=== PATIENT | male | born 1950 | race Caucasian/White ===

== ENCOUNTER → 2024-05-10 08:46 | Outpatient (REF) | payer MEDICARE, SELFPAY ==
[2024-05-10 10:26] LABS: % Basophils 0.4 % (0-2); % Eosinophils 1.2 % (0-6); % Lymphocytes 22.9 % (20.5-51.1); % Monocytes 9.2 % (1.7-9.3); % Neutrophils 65.3 % (42.2-75.2); Absolute Eosinophils 0.1 10^3/uL (0-0.7); Absolute Immature Granulocytes 0.1 10^3/uL (0-0.05); Absolute Lymphocytes 1.6 10^3/uL (1.2-3.4); Absolute Monocytes 0.6 10^3/uL (0.1-0.6); Absolute Neutrophils 4.5 10^3/uL (1.4-6.5); Hematocrit 39.5 % (39.0-52.0); Hemoglobin 12.6 g/dL (13.0-18.0); Mean Corp Hgb Conc. 31.9 g/dL (33.0-37.0); Mean Corpuscular Hgb 26.2 pg (27.0-31.0); Mean Corpuscular Volume 82.1 fL (80.0-94.0); Nucleated Red Blood Cells % 0 % (-); Platelet Count 233 10^3/uL (130-400); Red Blood Cell Count 4.81 10^6/uL (4.70-6.10); Red Cell Dist. Width 15.2 % (11.5-14.5); White Blood Cell Count 6.9 10^3/uL (4.8-10.8)
[2024-05-10 10:56] LABS: Blood Urea Nitrogen 21 mg/dl (9-20); Calcium 9.1 mg/dl (8.4-10.2); Carbon Dioxide 28 mmol/L (22-30); Chloride 103 mmol/L (98-107); Glucose 88 mg/dl (70-99); Sodium 137 mmol/L (135-145); eGFR > 60.00
== END ==
LOC: RCS 08:46
PROVIDERS: ATTENDING PHYSICIAN Orthopaedic Surgery; FAMILY PHYSICIAN Family Medicine
DX: Z01.818 Encounter for other preprocedural examination (principal)
CPT/HCPCS: 36415; 80048; 85025; 93005

== ENCOUNTER 2024-05-19 14:58 | Emergency (ER) | payer MEDICARE, SELFPAY ==
[2024-05-19 15:07] VITALS: BP 137/80
--- NOTE | 2024-05-19 15:37 | ED.GENMED ---
History of Present Illness
General
Chief Complaint: Swelling
Source: patient
Exam Limitations: none
Time Seen by Provider: 05/19/24 15:36
History of Present Illness
History of Present Illness:
74-year-old male with 2 weeks of nontraumatic swelling and pain mostly of the right wrist and hand. However also bilateral feet. No fever chills no chest pain shortness of breath no weight change. Patient went to patient urgent care who was
concerned about his EKG and sent him for further evaluation.
Past History
Past History
ED Past Medical History: HTN
ED Past Surgical History: Orthopedic and Other (Hernia repair/wisdom teeth)
Review of Systems
Review of Systems
All Other Systems: Not applicable
Constitutional: Denies fever, weight gain, weight loss or chills
Respiratory: Denies trouble breathing
Cardiac: Denies chest pain or syncope
Phy Exam
Physical Exam
Physical Exam:
GENERAL: Alert and oriented in no apparent distress
EYE: Orbits normal.
NECK: Supple, no thyroid palpable
ENT: Pharynx without erythema
CARDIAC: Regular rate and rhythm without any obvious murmurs.
LUNGS: Clear breath sounds,normal
ABDOMEN: Soft, without focal tenderness or distention
NEUROLOGICAL: Alert and oriented , grossly non-focal
SKIN: Warm and dry, no rash or lesion, no discoloration, skin intact.
MUSCULOSKELETAL: Mild swelling right wrist with diffuse tenderness. Swelling extends into the hand MCP joints and digits however no significant point tenderness. Feet are grossly normal. I do not appreciate any swelling or significant point
tenderness. No erythema. Good distal pulses and color. All other extremities unremarkable. There is no swelling or pitting of the calves ankles lower extremities or upper extremities except for the right wrist and hand
PSYCH: Normal and appropriate interaction.
Scores
Heart Failure Risk
Heart Failure Risk Score: Not Applicable
Course
Orders/Labs/Results
Orders:
Orders
05/19/24 15:13
Electrocardiogram (*1) Urgent
Reason for Study: Abnormal EKG
05/19/24 15:15
EKG- Treatment ONCE
05/19/24 15:48
CXR2 [CR Chest - 2 Views ] Urgent
Comment:
Reason For Exam: Swelling
Hand, Right 3 View [CR Hand - Right Min 3 Views] Urgent
Comment:
Reason For Exam: Nontraumatic swelling
Wrist, Right 3 Views [CR Wrist - Right Min 3 Views] Urgent
Comment:
Reason For Exam: Nontraumatic swelling
05/19/24 16:10
BNP [NT-proBNP] Urgent
CRP [C-Reactive Protein] Urgent
Complete Blood Count/With Diff Urgent
Comprehensive Metabolic Panel Urgent
ESR [Erythrocyte Sed Rate] Urgent
Lyme Progressive Urgent
Urinalysis Reflex To Culture Urgent
Date Specimen was Collected: 05/19/24
Time Specimen was Collected: 15:50
Urine Microscopic Reflex Cult Urgent
05/19/24 17:24
Prednisone [Deltasone] 50 mg PO NOW STA
Abnormal Lab Results
05/19/24
16:10
Hgb 12.5 L g/dL
(13.0-18.0)
Hct 38.8 L %
(39.0-52.0)
MCH 25.9 L pg
(27.0-31.0)
MCHC 32.2 L g/dL
(33.0-37.0)
RDW 14.7 H %
(11.5-14.5)
Abs Immat Gran (auto) 0.1 H 10^3/uL
(0-0.05)
Immature Gran % 1.2 H %
(0-0.5)
ESR 28 H mm/hour
(0-20)
Glucose 115 H mg/dl
(70-99)
C-Reactive Protein 41.30 H mg/L
(0.0-10.00)
Ur Occult Blood Reflex 2+ A
(Negative)
Urine RBC 3-6 A /HPF
(0-2)
Urine Albumin (Reflex) 1+ A
(Neg - Trace)
05/19/24 16:10
05/19/24 16:10
Vital Signs
Initial and Last Documented VS:
Initial Vital Signs
Temp Pulse Resp BP Pulse Ox
98.6 F 88 18 137/80 98
05/19/24 15:07 05/19/24 15:07 05/19/24 15:07 05/19/24 15:07 05/19/24 15:07
Last Documented Vital Signs
Temp Pulse Resp BP Pulse Ox
98.6 F 88 18 137/80 98
05/19/24 15:07 05/19/24 15:07 05/19/24 15:07 05/19/24 15:07 05/19/24 15:07
MDM/Problems Addressed
Differential Diagnosis Includes:
Patient symptoms are highly unlikely to be heart failure or renal related. The swelling is very localized to the joint of the right wrist. Feet I do not appreciate any swelling. There is no pitting. He is got no respiratory symptoms. Lungs are
clear. He will have a urine checked proBNP chest x-ray. His EKG that was sent over is unremarkable with just PVCs. And PACs. Not describing acute cardiac issue. ESR CRP and Lyme titer will also be sent.
*Radiology
Radiology exam reviewed: radiology read reviewed (Negative)
*Pulse Oximetry
Patient hypoxic: no
*EKG
Interpreted by ED Provider?: Yes
Interpretation: abnormal
Comparison EKG: changes noted
Heart Rate: 86
Rate: normal
Rhythm: PAC's and PVC's
[place]: normal axis
Interval: normal interval
QRS Pattern: normal QRS
Ischemia: no ischemia
*Critical Care Note
Total Time (30-74mins, 75-104mins- exclusive of procedures): Not Applicable
Update Note
Update Note:
This appears to be all arthralgias. Primarily the right wrist. Mild inflammatory marker elevation. Trace albumin and blood in the urine although I do not feel this is a nephrotic syndrome. Short course of steroids and follow-up. Patient will
discuss with orthopedics concerning his pending knee replacement surgery
ED Attending Note
-
Portions of this chart may have been created with voice recognition software.� Occasional wrong word or��sound alike� substitutions may have occurred due to the inherent limitations of voice recognition software.
Discharge Plan
Departure
Patient Disposition: Home (Routine Discharge)
Date of Disposition: 05/19/24
Time of Disposition: 17:25
Patient with high blood pressure during this ER visit?: Yes
Discharge Problem:
Polyarticular arthralgia, Incidental premature beats, Premature atrial complex
Instructions: Ventricular premature beats, BLOOD PRESSURE
Prescriptions:
New
prednisone 20 mg tablet
40 mg PO DAILY 5 Days Qty: 10 0RF
Referrals:
Carmelo Christianson MD [Family Provider] - Follow up in 2-3 days
Activity Restrictions/Additional Instructions:
There is trace albumin and blood in your urine. Likely unrelated to your current issues. For completeness follow this up with your primary physician
Call the orthopedic tomorrow to double check and make sure they are okay with the prednisone before your surgery
Return with increased swelling redness fever or other joint issues shortness of breath or any other concerning symptoms
Interventions
Interventions:
*Risk Screen - Suicide Last Done: 05/19/24 15:07
*General Assessment Last Done: 05/19/24 15:07
*Neglect/Abuse Screening Last Done: 05/19/24 15:40
*ED- Fall Risk Assessment Last Done: 05/19/24 15:26
*ED COVID-19 Vaccine History Last Done: 05/19/24 15:07
ED- Cardiac Assessment Last Done: 05/19/24 15:26
ED- Pulmonary Assessment Last Done: 05/19/24 15:26
ED-Skin Assessment Last Done: 05/19/24 15:26
Discharge Date and Time
Print Language: FRISIAN
[2024-05-19 16:17] LABS: % Basophils 0.5 % (0-2); % Eosinophils 1.2 % (0-6); % Immature Granulocytes 1.2 % (0-0.5); % Lymphocytes 25.9 % (20.5-51.1); % Monocytes 5.8 % (1.7-9.3); % Neutrophils 65.4 % (42.2-75.2); Absolute Eosinophils 0.1 10^3/uL (0-0.7); Absolute Immature Granulocytes 0.1 10^3/uL (0-0.05); Absolute Lymphocytes 1.5 10^3/uL (1.2-3.4); Absolute Monocytes 0.3 10^3/uL (0.1-0.6); Absolute Neutrophils 3.9 10^3/uL (1.4-6.5); Hematocrit 38.8 % (39.0-52.0); Hemoglobin 12.5 g/dL (13.0-18.0); Mean Corp Hgb Conc. 32.2 g/dL (33.0-37.0); Mean Corpuscular Hgb 25.9 pg (27.0-31.0); Mean Corpuscular Volume 80.5 fL (80.0-94.0); Mean Platelet Volume 9.9 fL (7.4-10.4); Nucleated Red Blood Cells % 0 % (-); Platelet Count 237 10^3/uL (130-400); Red Blood Cell Count 4.82 10^6/uL (4.70-6.10); Red Cell Dist. Width 14.7 % (11.5-14.5); White Blood Cell Count 5.9 10^3/uL (4.8-10.8)
[2024-05-19 16:25] LABS: Erythrocyte Sed Rate 28 mm/hour (0-20)
[2024-05-19 16:30] LABS: Urine Albumin 1+ (Neg - Trace); Urine Bilirubin Negative (Negative); Urine Character Clear (Clear); Urine Color Yellow; Urine Glucose Negative (Negative); Urine Ketone Negative (Negative); Urine Leukocyte Negative (Negative); Urine Nitrite Negative (Negative); Urine Occult Blood 2+ (Negative); Urine Specific Gravity 1.015 (<1.030); Urine Urobilinogen Negative (Neg - 1+)
[2024-05-19 16:31] LABS: ALT (SGPT) 16 U/L (0-50); AST (SGOT) 22 U/L (17-59); Albumin 4.2 g/dl (3.5-5.0); Alkaline Phosphatase 92 U/L (38-126); Blood Urea Nitrogen 15 mg/dl (9-20); Calcium 9.3 mg/dl (8.4-10.2); Carbon Dioxide 29 mmol/L (22-30); Chloride 101 mmol/L (98-107); Glucose 115 mg/dl (70-99); Potassium 3.6 mmol/L (3.5-5.1); Sodium 138 mmol/L (135-145); Total Bilirubin 0.6 mg/dl (0.2-1.3); Total Protein 7.6 g/dl (6.3-8.2); eGFR > 60.00
[2024-05-19 16:40] LABS: NT-proBNP 315 pg/ml; Urine Squamous Cell 0-2 /LPF (Few); Urine White Cell 0-2 /HPF (0-5)
[2024-05-19] MEDS: DELTASONE 50 MG PO (17:26)
[2024-05-19 17:48] VITALS: BP 135/70
[2024-05-20 13:31] LABS: Lyme Antibody Screen, EIA Negative (Negative)
== END 2024-05-19 17:49 | disposition home or self-care (01) ==
LOC: EMR 14:58
PROVIDERS: Emergency Medicine; EMERGENCY PHYSICIAN Emergency Medicine; FAMILY PHYSICIAN Family Medicine
DX: M25.531 Pain in right wrist (principal); I10 Essential (primary) hypertension; I49.1 Atrial premature depolarization; I49.3 Ventricular premature depolarization
CPT/HCPCS: 99285; 71046; 73110; 73130; 80053; 81003; 81015; 83880; 85025; 85652; 86140; 86618; 93005